=== PATIENT | female | born 1995 | race Asian ===

== ENCOUNTER → 2017-06-22 | Outpatient (CLI) | payer OTHER ==
[~2017-06-22] MED LIST: AZIT250T5 PO; BCPILLS PO; HYDR5SYP11 PO; IBUP-1050 PO
--- NOTE | 2017-06-22 13:01 | DIAGNOSTIC IMAGING REPORT ---
PELVIC COMPLETE NON OB HISTORY: 21 years-old Female RLQ PELVIC/PERINEAL PAIN symptoms are acute. COMPARISON: None available TECHNIQUE: Multiple real-time sonographic images of the pelvic structures were obtained transabdominally assessing grayscale appearance, color and spectral flow. The patient denied the transvaginal component of the study. FINDINGS: Uterus measures 9.6 x 2.7 x 4.1 cm and is anteflexed. No focal myometrial mass lesions are identified. Endometrium is homogeneous, 0.8 cm. The right ovary measures 3.1 x 1.7 x 2.8 cm and is within normal limits with arterial inflow documented The left ovary measures 4.8 x 1.8 x 2.7 cm it is within normal limits with arterial inflow documented. There is no significant free pelvic fluid identified. IMPRESSION: 1. Normal sonographic appearance of the ovaries without evidence of torsion. 2. Normal sonographic appearance of the uterus and endometrium. The above report was generated using voice recognition software. It may contain grammatical, syntax or spelling errors. Electronically signed by: Nick Kent M.D. 06/22/2017 12:59 PM Dictated Date/Time: 06/22/2017 12:57 PM
== END | disposition home or self-care (01) ==
LOC: C.ULTR 11:47
PROVIDERS: ATTEND Physician Assistant Medical
DX: R10.2 Pelvic and perineal pain (principal)

== ENCOUNTER 2017-07-11 06:21 | Emergency (ER) | payer OTHER ==
[~2017-07-11] VITALS: Ht 167.6 cm; Wt 56.9 kg
[2017-07-11 06:26] VITALS: TEMP 36.4; Ht 167.6 cm; Wt 56.9 kg
[2017-07-11] MEDS ORDERED: BCPILLS PO (06:37)
[2017-07-11] MEDS ORDERED: IBUP-1050 PO (06:37)
[2017-07-11] MEDS ORDERED: ALBUT/IPRATROP 3MG/0.5MG NEB 3 ML VIAL INH STA (06:45)
--- NOTE | 2017-07-11 06:45 | EMERGENCY ROOM VISIT NOTE ---
History Report prepared by Ragini: Gretchen Garcia Under the Supervision of: Dr. Houston Frye M.D. First contact with patient: 06:33 Chief Complaint: ILLNESS Stated Complaint: WEAKNESS History of Present Illness The patient is a 21 year old female who presents to the Emergency Room with complaints of weakness beginning last night. The patient reports that she has not slept well this past week. She also complains of shortness of breath, lower abdominal pain, groin pain, back pain, chest discomfort, and shaky hands. She has had these symptoms for about a month, but states that the pain worsened over the last week. The patient denies having a fever. She also reports that there is no chance that she is and that she takes control pills. She also reports that she is not vaccinated. Source of History: patient Onset: last night Position: other (global) Quality: other (weakness) Associated Symptoms: + chest pain (discomfort), + SOB, + abdominal pain ( lower), + back pain, No fevers Note: additional symptom: shaky hands, groin pain Review of Systems See HPI for pertinent positives & negatives. A total of 10 systems reviewed and were otherwise negative. Past Medical & Surgical Medical Problems: (1) Pelvic and perineal pain Family History No pertinent family history stated. Social History Smoking Status: Never Smoker Marital Status: single Current/Historical Medications Scheduled Azithromycin (Zithromax), 250 MG PO DAILY Control Pills ( Control Pills), 1 TAB PO DAILY Scheduled PRN Hydrocodone W/ Homatropine (Hycodan 5/1.5MG 5 Ml), 5 ML PO HS PRN for Cough Ibuprofen (Advil), 400 MG PO Q4 PRN for Pain or Fever Allergies Coded Allergies: Aspirin (Verified Allergy, Unknown, childhood allergy, 07/11/17) Uncoded Allergies: METAL (Allergy, Intermediate, rash, 07/11/17) Physical Exam Vital Signs Date Time Temp Pulse Resp B/P (MAP) Pulse Ox O2 Delivery O2 Flow Rate FiO2 07/11/17 07:46 120 20 138/70 98 Room Air 07/11/17 07:36 71 16 100 Room Air 07/11/17 07:05 95 Room Air 07/11/17 06:45 99 Room Air 07/11/17 06:29 64 07/11/17 06:26 36.4 74 16 125/76 99 Room Air Physical Exam GENERAL: Patient is a healthy-appearing well-nourished female. No sign of encephalitis or meningitis upon examination. HEAD: Normocephalic atraumatic EYES: Ocular movements intact pupils equal and react to light OROPHARYNX mucous membranes are moist no exudates present no erythema or edema present NECK: Supple no nuchal rigidity CHEST: Good equal expansion LUNGS: Clear and equal to auscultation CARDIAC: Normal S1 and S2 ABDOMEN: Soft nontender no guarding BACK: No CVA tenderness EXTREMITIES: No pain upon palpation normal muscle strength in all groups no clubbing cyanosis or edema NEURO: Patient is following commands and answering questions appropriately. Alert and oriented x3 Cranial Nerves 2-12 grossly intact Medical Decision & Procedures ER Provider Diagnostic Interpretation: X-ray results as stated below per interpretation by me and the radiologist: CHEST ONE VIEW PORTABLE CLINICAL HISTORY: Cough COMPARISON STUDY: No previous studies for comparison. FINDINGS: The cardiac and mediastinal contours are normal. There is no evidence of focal pulmonary consolidation. There is no evidence of failure. No pleural effusions are visualized.[ IMPRESSION: No active disease in the chest. Electronically signed by: Trae Rowe M.D. 07/11/2017 7:01 AM Dictated Date/Time: 07/11/2017 7:01 AM Laboratory Results 07/11/17 07:01 Red Blood Count 4.73, Mean Corpuscular Volume 80.5, Mean Corpuscular Hemoglobin 27.7, Mean Corpuscular Hemoglobin Concent 34.4, Mean Platelet Volume 10.5, Neutrophils (%) (Auto) 56.7, Lymphocytes (%) (Auto) 31.7, Monocytes (%) (Auto) 9.0, Eosinophils (%) (Auto) 2.1, Basophils (%) (Auto) 0.4, Neutrophils # (Auto) 4.35, Lymphocytes # (Auto) 2.43, Monocytes # (Auto) 0.69, Eosinophils # (Auto) 0.16, Basophils # (Auto) 0.03 07/11/17 07:01 Test 07/11/17 07:00 07/11/17 07:01 07/11/17 07:03 07/11/17 07:05 Influenza Type A (RT-PCR) Neg for Influ A (NEG) Influenza Type A Antigen Neg for Influ A (NEG) Influenza Type B Antigen Neg for Influ B (NEG) Influenza Type B (RT-PCR) Neg for Influ B (NEG) White Blood Count 7.67 K/uL (4.8-10.8) Red Blood Count 4.73 M/uL (4.2-5.4) Hemoglobin 13.1 g/dL (12.0-16.0) Hematocrit 38.1 % (37-47) Mean Corpuscular Volume 80.5 fL (80-100) Mean Corpuscular Hemoglobin 27.7 pg (25-34) Mean Corpuscular Hemoglobin Concent 34.4 g/dl (32-36) Platelet Count 248 K/uL (130-400) Mean Platelet Volume 10.5 fL (7.4-10.4) Neutrophils (%) (Auto) 56.7 % Lymphocytes (%) (Auto) 31.7 % Monocytes (%) (Auto) 9.0 % Eosinophils (%) (Auto) 2.1 % Basophils (%) (Auto) 0.4 % Neutrophils # (Auto) 4.35 K/uL (1.4-6.5) Lymphocytes # (Auto) 2.43 K/uL (1.2-3.4) Monocytes # (Auto) 0.69 K/uL (0.11-0.59) Eosinophils # (Auto) 0.16 K/uL (0-0.5) Basophils # (Auto) 0.03 K/uL (0-0.2) RDW Standard Deviation 40.6 fL (36.4-46.3) RDW Coefficient of Variation 13.8 % (11.5-14.5) Immature Granulocyte % (Auto) 0.1 % Immature Granulocyte # (Auto) 0.01 K/uL (0.00-0.02) Est Creatinine Clear Calc Drug Dose 97.5 ml/min Estimated GFR () 118.6 Estimated GFR (Non- 102.3 BUN/Creatinine Ratio 12.6 (10-20) Calcium Level 9.0 mg/dl (8.5-10.1) Total Bilirubin 0.4 mg/dl (0.2-1) Direct Bilirubin 0.1 mg/dl (0-0.2) Aspartate Amino Transf (AST/SGOT) 12 U/L (15-37) Alanine Aminotransferase (ALT/SGPT) 19 U/L (12-78) Alkaline Phosphatase 63 U/L (45-117) Total Protein 7.7 gm/dl (6.4-8.2) Albumin 4.0 gm/dl (3.4-5.0) Lyme Disease IgG Antibody NEG (NEG) Lyme Disease IgM Antibody NEG (NEG) Monoscreen NEG (NEG) Bedside D-Dimer 68 ng/mlFEU (0-450) Bedside Hemoglobin 14.3 g/dl (12.0-16.0) Bedside Hematocrit 42 % (37-47) Bedside Sodium 140 mEq/L (135-144) Bedside Potassium 3.2 mEq/L (3.3-5.0) Bedside Chloride 103 mEq/L (101-112) Bedside Total CO2 23 mEq/l (24-31) Anion Gap 18.0 mmol/L (16-25) Bedside Blood Urea Nitrogen 10 mg/dl (7-18) Bedside Creatinine 0.7 mg/dl (0.6-1.3) Bedside Glucose (other) 91 mg/dl (70-99) Bedside Ionized Calcium (Elias) 1.20 mmol/l (1.12-1.32) Labs reviewed by ED physician. Medications Administered Medications (Trade) Dose Ordered Sig/Sacha Route Start Time Stop Time Status Last Admin Dose Admin Albuterol/ Ipratropium (Duoneb) 12 ml ONE STAT INH 07/11/17 06:45 07/11/17 06:47 DC 07/11/17 06:45 12 ML Sodium Chloride 1,000 ml @ 999 mls/hr Q1H1M STAT IV 07/11/17 06:48 07/11/17 07:48 DC 07/11/17 07:05 999 MLS/HR Potassium Chloride (Klor-Con M10) 80 meq NOW STAT PO 07/11/17 07:21 07/11/17 07:22 DC 07/11/17 07:45 80 MEQ Albuterol (Ventolin Hfa Inhaler) 2 puffs NOW STAT INH 07/11/17 07:48 07/11/17 07:50 DC 07/11/17 08:02 2 PUFFS Azithromycin (Zithromax Tab) 500 mg NOW STAT PO 07/11/17 07:48 07/11/17 07:50 DC 07/11/17 08:02 500 MG ECG Indication: weakness Rate (beats per minute): 72 Rhythm: normal sinus Findings: no acute ischemic change, no ectopy ED Course 0636: Past medical records reviewed. The patient was evaluated in room B7. A complete history and physical examination was performed. 0645: Ordered Duoneb 12 ml INH. 0648: Ordered Toradol Inj 30 mg, Sodium Chloride 1,000 ml @ 999 mls/hr IV. 0721: Ordered Potassium Chloride 80 meq PO. 0748: Ordered Azithromycin 500 mg PO, Albuterol 2 puffs INH. 0755: Upon reexamination the patient is resting. I discussed results and treatment plan with the patient. She verbalizes agreement and understanding. The patient is ready for discharge. Medical Decision Differential diagnosis: Etiologies such as metabolic, infection, hypo/hyperglycemia, electrolyte abnormalities, cardiac sources, intracerebral event, toxicologic, neurologic, as well as others were entertained. This is a 21-year-old female who presents emergency department complaining of generalized body aches that has been going on for the past 3 weeks. The patient has no evidence of meningitis or encephalitis on exam there is actively coughing. For this reason the patient was given a breathing treatment. She was also started on normal saline bolus along with Toradol. The patient has a normal d-dimer. She does not have an elevation in her white blood cell count. I feel based on these findings at the patient can be safely discharged home pending viral and Lyme results. Patient was in agreement with the treatment plan. The patient was sent on azithromycin and given an albuterol inhaler as well as Hycodan for the cough. Medication Reconcilliation Current Medication List: was personally reviewed by me Blood Pressure Screening Patient's blood pressure: Normal blood pressure Impression Primary Impression: Bronchitis Scribe Attestation The scribe's documentation has been prepared under my direction and personally reviewed by me in its entirety. I confirm that the note above accurately reflects all work, treatment, procedures, and medical decision making performed by me. Departure Information Dispostion Home / Self-Care Prescriptions Hydrocodone W/ Homatropine (HYCODAN 5/1.5MG 5 ML) 1 Syp Syp 5 ML PO HS Y for Cough, #120 ML Prov: Houston Frye MD 07/11/17 Azithromycin (ZITHROMAX) 250 Mg Tab 250 MG PO DAILY, #4 TAB Prov: Houston Frye MD 07/11/17 Referrals No Doctor, Assigned (PCP) Forms HOME CARE DOCUMENTATION FORM, IMPORTANT VISIT INFORMATION, WORK / SCHOOL INSTRUCTIONS Patient Instructions Bronchitis Acute, My [facility] Additional Instructions Use inhaler twice every 6 hours You received narcotic or benzodiazepene medication while in the emergency room today. Do not drive, operate heavy machinery, or drink alcohol under the influence of this medication. Take 600 mg Ibuprofen every 6 hours Take 1000 mg Tylenol every 6 hours Increase fluids next 48 hours Culture results are usually available in approx 48 hours You have been examined and treated today on an emergency basis only. This is not a substitute for, or an effort to provide, complete comprehensive medical care. It is impossible to recognize and treat all injuries or illnesses in a single emergency department visit. It is therefore important that you follow up closely with S. [facility] as soon as possible for an appointment. Thank you for your time and consideration. I look forward to speaking with you again soon. Please don't hesitate to call us if you have any questions.
[2017-07-11] MEDS ORDERED: SODIUM CHLORIDE 0.9% 1000ML 1,000 ML IV STA (06:48)
[2017-07-11] MEDS ORDERED: KETOROLAC TROMETHAMINE 30 MG/ML VIAL IV STA (06:48)
--- NOTE | 2017-07-11 07:03 | DIAGNOSTIC IMAGING REPORT ---
CHEST ONE VIEW PORTABLE CLINICAL HISTORY: Cough COMPARISON STUDY: No previous studies for comparison. FINDINGS: The cardiac and mediastinal contours are normal. There is no evidence of focal pulmonary consolidation. There is no evidence of failure. No pleural effusions are visualized.[ IMPRESSION: No active disease in the chest. Electronically signed by: Trae Rowe M.D. 07/11/2017 7:01 AM Dictated Date/Time: 07/11/2017 7:01 AM
[2017-07-11 07:05] VITALS: O2SAT 95
[2017-07-11 07:15] LABS: BASO % 0.4 %; BASO ABS # 0.03 K/uL (0-0.2); COMPLETE YES; EOS % 2.1 %; HEMATOCRIT 38.1 % (37-47); IG% 0.1 %; LYMPH % 31.7 %; LYMPH ABS # 2.43 K/uL (1.2-3.4); MEAN CELL VOLUME 80.5 fL (80-100); MEAN CORPUSCULAR HEMOGLOBIN 27.7 pg (25-34); MEAN CORPUSCULAR HGB CONC 34.4 g/dl (32-36); MEAN PLATELET VOLUME 10.5 fL (7.4-10.4); NEUT % 56.7 %; PLATELET COUNT 248 K/uL (130-400); RED BLOOD COUNT 4.73 M/uL (4.2-5.4); WHITE BLOOD COUNT 7.67 K/uL (4.8-10.8)
[2017-07-11 07:18] LABS: ISTAT CREATININE 0.7 mg/dl (0.6-1.3); ISTAT HEMOGLOBIN 14.3 g/dl (12.0-16.0); ISTAT IONIZED CALCIUM 1.2 mmol/l (1.12-1.32)
[2017-07-11] MEDS ORDERED: POTASSIUM CHLORIDE 10 MEQ TABCR PO STA (07:21)
[2017-07-11 07:31] LABS: BUN/CREATININE RATIO 12.6 (10-20); CREATININE 0.82 mg/dl (0.60-1.20); POTASSIUM 3.2 mmol/L (3.5-5.1)
[2017-07-11 07:36] VITALS: PULSE 71; O2SAT 100
[2017-07-11 07:46] VITALS: BP 138/70; PULSE 120; O2SAT 98
[2017-07-11] MEDS ORDERED: AZITHROMYCIN 250 MG TAB PO STA (07:48)
[2017-07-11] MEDS ORDERED: ALBUTEROL HFA 8 GM INHALER INH STA (07:48)
[2017-07-11] MEDS ORDERED: AZIT250T5 PO (07:53)
[2017-07-11] MEDS ORDERED: HYDR5SYP11 PO (07:53)
[2017-07-11 08:58] LABS: LYME DISEASE AB IGG NEG (NEG); LYME DISEASE AB IGM NEG (NEG)
[2017-07-11 09:20] LABS: INFLUENZA A PCR Neg for Influ A (NEG); INFLUENZA B PCR Neg for Influ B (NEG)
[2017-07-12 12:05] LABS: EBV EARLY ANTIGEN AB <9.00 U/ML
== END 2017-07-11 08:11 | disposition home or self-care (01) ==
LOC: EDBD 06:21 → C.EDB 06:22
DX: J40 Bronchitis, not specified as acute or chronic (principal); Z88.6 Allergy status to analgesic agent